=== PATIENT | male | born 1970 | race Caucasian/White ===

== ENCOUNTER 2017-06-21 15:31 | Emergency (ER) | payer BC ==
[~2017-06-21] VITALS: Ht 177.8 cm; Wt 81.0 kg
[2017-06-21 15:53] LABS: HEMATOCRIT 45.8 % (38.0-50.0); HEMOGLOBIN 15.8 G/DL (12.5-16.6); MCH 31.9 PG (29.0-34.0); MCHC 34.5 G/DL (30.0-36.0); MCV 92.3 FL (86-99); PLATELET COUNT 282 K/uL (156-360); RBC DIS.WIDTH-CV 12.1 % (11.8-14.6); RBC DIS.WIDTH-SD 41.3 % (39-53); RED BLOOD COUNT 4.96 M/uL (4.00-5.50); WHITE BLOOD COUNT 6.4 K/uL (4.1-10.2)
[2017-06-21 16:01] LABS: CHLORIDE 105 mEq/L (99-109); POTASSIUM 4.7 mEq/L (3.7-5.4); SODIUM 141 mEq/L (136-147)
[2017-06-21 16:03] LABS: GLUCOSE 104 mg/dL (70-99)
[2017-06-21 16:07] LABS: CREATININE 0.9 mg/dL (0.6-1.3); GFR ESTIMATE (CALCULATED) > 59 mL/min/ (58.99-99999)
[2017-06-21 16:08] LABS: UREA NITROGEN (BUN) 15 mg/dL (9-23)
[2017-06-21 16:13] LABS: TROP-I INTERPRETATION NEGATIVE; TROPONIN-I < 0.01 ng/mL (0.0-0.30)
[2017-06-21] MEDS ORDERED: AMOXICILLIN875 MG PO (18:50)
[2017-06-21] MEDS ORDERED: DELTASONE20 M1 PO (18:50)
[2017-06-21 18:55] VITALS: BP 122/92
[2017-06-22 11:10] LABS: LYME DISEASE SEROLOGY SCREEN NEGATIVE (NEGATIVE)
== END 2017-06-21 18:55 | disposition home or self-care (01) ==
LOC: EME 15:31
DX: H92.01 Otalgia, right ear (principal); R50.9 Fever, unspecified; J32.0 Chronic maxillary sinusitis; I65.29 Occlusion and stenosis of unspecified carotid artery; R59.0 Localized enlarged lymph nodes
CPT/HCPCS: 70491; 80048; 84484; 85027; 86618; 93005; 99281; 99285; J1885

== ENCOUNTER 2018-01-09 21:42 | Emergency (ER) | payer BC ==
[~2018-01-09] VITALS: Ht 175.3 cm; Wt 78.8 kg
[~2018-01-09 21:42] MED LIST: AMOXICILLIN875 MG PO; DELTASONE20 M1 PO
[2018-01-09] MEDS ORDERED: TOBREX5 ML LEFT EYE (23:12)
[2018-01-09] MEDS ORDERED: ERYTHROMYC1 APPLICAT LEFT EYE (23:12)
[2018-01-09 23:54] VITALS: BP 121/80
== END 2018-01-09 23:54 | disposition home or self-care (01) ==
LOC: EME 21:42
DX: H10.212 Acute toxic conjunctivitis, left eye (principal); T54.3X1A Toxic effect of corrosive alkalis and alkali-like substances, accidental (unintentional), initial encounter; Y92.007 Garden or yard of unspecified non-institutional (private) residence as the place of occurrence of the external cause; I10 Essential (primary) hypertension; Z87.891 Personal history of nicotine dependence; Z85.048 Personal history of other malignant neoplasm of rectum, rectosigmoid junction, and anus
CPT/HCPCS: 99281; 99283